=== PATIENT | male | born 1945 | race Caucasian/White ===

== ENCOUNTER 2016-12-26 04:24 | Observation (INO) | payer OTHER ==
[2016-12-26] MEDS ORDERED: ASPIRIN PO STA (04:42)
[2016-12-26] MEDS ORDERED: NITROGLYCERIN SL PRN (04:42)
[2016-12-26] MEDS ORDERED: ASPIRIN PO ONE (04:42)
[2016-12-26 04:49] LABS: MANUAL DIFF NEEDED? NO
[2016-12-26 04:58] LABS: BASO% 0.9 % (0.0-0.8); EOS# 0.42 X1000 (0.0-0.7); EOS% 7.8 % (0.0-10.0); HEMATOCRIT 39.4 % (42.0-52.0); HEMOGLOBIN 13.4 g/dL (14.0-18.0); LYMPH# 1.36 X1000 (1.2-3.4); LYMPH% 25.2 % (20.5-51.1); MCH 30.6 PG (27-31); MONO# 0.64 X1000 (0.11-0.59); MONO% 11.9 % (1.7-9.3); MPV 9.9 FL (7.4-10.4); NEUT% 54.2 % (42.2-75.2); PLT 265 X1000 (130-400); RBC 4.38 XMIL (4.7-6.1)
[2016-12-26 05:04] LABS: INR 1.07; PROTIME 11.3 Seconds (9.2-11.7); PTT 23.5 Seconds (22.0-36.0)
[2016-12-26 05:13] LABS: AGAP 13; ALBUMIN 4.2 g/dL (3.5-5.0); ALKALINE PHOSPHATASE 57 U/L (32-122); BUN 14 mg/dL (8-22); CALCIUM 9.2 mg/dL (8.8-10.2); CHLORIDE 103 mmol/L (98-107); CK PROFILE 117 U/L (24-204); COSMO 285; GOT 19 U/L (10-34); GPT 23 U/L (10-44); MAGNESIUM 1.8 mg/dL (1.5-2.7); POTASSIUM 4.2 mmol/L (3.5-5.1); SODIUM 141 mmol/L (136-145); TCO2 25 mmol/L (25-35); TOTAL BILIRUBIN 0.36 mg/dL (0.20-1.00); TOTAL PROTEIN 6.8 g/dL (6.3-8.3)
--- NOTE | 2016-12-26 05:25 | PROVIDER DOCUMENTATION ---
HPI-Chest Pain - General Source: patient - History of Present Illness-CP Location: reports: substernal Chest Pain Radiation: reports: no radiation Quality of Pain: reports: aching, fullness Severity in ED: mild Onset/Duration: 1-3 hours ago Timing: improving Context/Activities at Onset: reports: sleep Modifying Factors: improves with: nothing Associated Symptoms: reports: denies symptoms Nitro Today/Relief: no nitro taken today Aspirin Treatment Today: 81 mg x 1 Prior Chest Pain/Cardiac Workup: reports: cardiac cath (Pt had stent 15 years ago) Similar Symptoms Previously?: No Recently Seen Here or By Another Healthcare Provider: No <Devyn Nelson - Last Filed: 12/26/16 05:44> <Nba Rogers - Last Filed: 12/26/16 06:50> - General Chief Complaint: Chest Pain Stated Complaint: CP, HIGH BLOOD PRESSURE Time Seen by Provider: 12/26/16 04:34 Allergies/Adverse Reactions: Patient Allergies Allergy/AdvReac Type Severity Reaction Status Date / Time codeine AdvReac FLUSHING Verified 12/26/16 04:50 Home Medications: Home Medication List Medication Instructions Recorded Confirmed Last Taken Type Clopidogrel Bisulfate [Plavix] 75 mg PO DAILY 12/26/16 12/26/16 12/25/16 History - History of Present Illness-CP Nature of Presenting Problem: 71 yo WM with known IHD was awakened around 3 am with substernal CP but no N, V , sweating, etc. He is able to walk 5 miles per day without difficulty ( Devyn Nelson) Review of Systems - Adult - REVIEW OF SYSTEMS - ADULT Constitutional: reports: no symptoms reported Eyes: reports: no symptoms reported Ears, Nose, Mouth & Throat: reports: no symptoms reported Cardiovascular: reports: see HPI Respiratory: reports: no symptoms reported Gastrointestinal: reports: no symptoms reported Genitourinary: reports: no symptoms reported Musculoskeletal: reports: no symptoms reported Integumentary: reports: no symptoms reported Neurological: reports: no symptoms reported Psychiatric: reports: no symptoms reported Endocrine: reports: no symptoms reported Hematologic/Lymphatic: reports: no symptoms reported Allergic/Immunologic: reports: no symptoms reported All Other Systems: Reviewed and Negative <Devyn Nelson - Last Filed: 12/26/16 05:44> Past History - Adult - PAST MEDICAL HISTORY-ADULT Review of Records: reports: Medications Reviewed, Social history reviewed & non- contributory. <Devyn Nelson - Last Filed: 12/26/16 05:44> Physical Exam-General - PHYSICAL EXAM-ADULT Initial Vital Signs Reviewed: Yes - CONSTITUTIONAL General Appearance: appears well, alert, no apparent distress - EYES Eyes: PERRL/EOMI, pink conjunctivae - HEAD, EARS, NOSE, MOUTH & THROAT HENMT: normocephalic/atraumatic, moist mucous membranes, normal ENT inspection - NECK Neck: non-tender, full range of motion - RESPIRATORY Respiratory: chest non-tender, lungs clear, normal breath sounds - CARDIOVASCULAR Cardiovascular: regular rate, rhythm, no edema, no gallop, no JVD - GASTROINTESTINAL (ABDOMEN) Abdominal Exam: normal bowel sounds, non tender, soft, no organomegaly - GENITOURINARY Rectal Exam: deferred - LYMPHATIC Lymphatic: no adenopathy - MUSCULOSKELETAL Extremity: normal range of motion, non-tender Peripheral Pulses: radial (R): 3+, radial (L): 3+ - SKIN Integumentary: normal color, normal turgor, warm/dry - NEUROLOGIC Neurologic: grossly normal - PSYCHIATRIC Psych/Mental Status: normal mood/affect <Devyn Nelson - Last Filed: 12/26/16 05:44> Progress <Devyn Nelson - Last Filed: 12/26/16 05:44> <Nba Rogers - Last Filed: 12/26/16 06:50> - PLAN OF CARE/RESULTS Progress/Plan/Lab Results: Laboratory Tests 12/26/16 12/26/16 12/26/16 04:39 04:39 04:39 WBC 5.40 RBC 4.38 L Hgb 13.4 L Hct 39.4 L MCV 90.0 MCH 30.6 MCHC 34.0 RDW Std Deviation 13.0 Plt Count 265 MPV 9.9 Immature Gran % (Auto) 0.0 Neut % (Auto) 54.2 Lymph % (Auto) 25.2 [place] % (Auto) 11.9 H Eos % (Auto) 7.8 Baso % (Auto) 0.9 H Immature Gran # (Auto) 0.00 Neut # (Auto) 2.93 Lymph # (Auto) 1.36 [place] # (Auto) 0.64 H Eos # (Auto) 0.42 Baso # (Auto) 0.05 PT INR PTT (Actin FS) D-Dimer 0.18 Sodium 141 Potassium 4.2 Chloride 103 Carbon Dioxide 25 Anion Gap 13 BUN 14 Creatinine 1.0 Estimated GFR/1.73 m2 > 60 BUN/Creatinine Ratio 14 Glucose 152 H Calculated Osmolality 285 Calcium 9.2 Magnesium 1.8 Total Bilirubin 0.36 AST 19 ALT 23 Alkaline Phosphatase 57 Creatine Kinase 117 Yhn-J-Fjlkodiavtn Pept Total Protein 6.8 Albumin 4.2 Globulin 2.6 Albumin/Globulin Ratio 1.6 12/26/16 12/26/16 04:39 04:39 WBC RBC Hgb Hct MCV MCH MCHC RDW Std Deviation Plt Count MPV Immature Gran % (Auto) Neut % (Auto) Lymph % (Auto) [place] % (Auto) Eos % (Auto) Baso % (Auto) Immature Gran # (Auto) Neut # (Auto) Lymph # (Auto) [place] # (Auto) Eos # (Auto) Baso # (Auto) PT 11.3 INR 1.07 PTT (Actin FS) 23.5 D-Dimer Sodium Potassium Chloride Carbon Dioxide Anion Gap BUN Creatinine Estimated GFR/1.73 m2 BUN/Creatinine Ratio Glucose Calculated Osmolality Calcium Magnesium Total Bilirubin AST ALT Alkaline Phosphatase Creatine Kinase Jut-D-Fwbdzdnryge Pept 57 Total Protein Albumin Globulin Albumin/Globulin Ratio Orders Category Date Time Status Cardiac Monitoring DIRECTED Care 12/26/16 04:42 Active Saline Loc NOW Care 12/26/16 04:42 Active CHEST-PORTABLE [RAD] Stat Exams 12/26/16 04:42 Taken CBC WITH ELECTRONIC DIFF [HEME] Stat Lab 12/26/16 04:39 Completed CK PROFILE [SP CHEM] Stat Lab 12/26/16 04:39 Completed COMPREHENSIVE METABOLIC PANEL [CHEM] Stat Lab 12/26/16 04:39 Completed D-DIMER [CHEM] Stat Lab 12/26/16 04:39 Completed MAGNESIUM [CHEM] Stat Lab 12/26/16 04:39 Completed PRO B-NATRIURETIC PEPTIDE Stat Lab 12/26/16 04:39 Completed PROTIME WITH INR [COAG] Stat Lab 12/26/16 04:39 Completed PTT [COAG] Stat Lab 12/26/16 04:39 Completed TROPONIN T Stat Lab 12/26/16 04:39 Received Aspirin Med 12/26/16 04:42 Discontinued 324 mg PO NOW ONE Aspirin Med 12/26/16 04:42 Discontinued 325 mg PO STAT STA Nitroglycerin Sl [Nitroglycerin] Med 12/26/16 04:42 Active 0.4 mg SL Q5M PRN PRN EKG [EKG] Stat Ther 12/26/16 04:27 Ordered EKG [EKG] Stat Ther 12/26/16 04:42 Ordered Vital Signs Temp Pulse Resp BP Pulse Ox 12/26/16 05:38 71 18 140/70 99 12/26/16 04:28 98.4 F 84 16 137/77 100 codeine Adverse Reaction (Verified 12/26/16 04:50) FLUSHING Clopidogrel Bisulfate [Plavix] 75 mg PO DAILY 12/26/16 Laboratory 12/26/16 12/26/16 12/26/16 04:39 04:39 04:39 WBC RBC Hgb Hct MCV MCH MCHC RDW Std Deviation Plt Count MPV Immature Gran % (Auto) Neut % (Auto) Lymph % (Auto) [place] % (Auto) Eos % (Auto) Baso % (Auto) Immature Gran # (Auto) Neut # (Auto) Lymph # (Auto) [place] # (Auto) Eos # (Auto) Baso # (Auto) PT 11.3 INR 1.07 PTT (Actin FS) 23.5 D-Dimer 0.18 Sodium Potassium Chloride Carbon Dioxide Anion Gap BUN Creatinine Estimated GFR/1.73 m2 BUN/Creatinine Ratio Glucose Calculated Osmolality Calcium Magnesium Total Bilirubin AST ALT Alkaline Phosphatase Creatine Kinase Cuy-I-Scdibxnakhq Pept 57 Total Protein Albumin Globulin Albumin/Globulin Ratio 12/26/16 12/26/16 04:39 04:39 WBC 5.40 RBC 4.38 L Hgb 13.4 L Hct 39.4 L MCV 90.0 MCH 30.6 MCHC 34.0 RDW Std Deviation 13.0 Plt Count 265 MPV 9.9 Immature Gran % (Auto) 0.0 Neut % (Auto) 54.2 Lymph % (Auto) 25.2 [place] % (Auto) 11.9 H Eos % (Auto) 7.8 Baso % (Auto) 0.9 H Immature Gran # (Auto) 0.00 Neut # (Auto) 2.93 Lymph # (Auto) 1.36 [place] # (Auto) 0.64 H Eos # (Auto) 0.42 Baso # (Auto) 0.05 PT INR PTT (Actin FS) D-Dimer Sodium 141 Potassium 4.2 Chloride 103 Carbon Dioxide 25 Anion Gap 13 BUN 14 Creatinine 1.0 Estimated GFR/1.73 m2 > 60 BUN/Creatinine Ratio 14 Glucose 152 H Calculated Osmolality 285 Calcium 9.2 Magnesium 1.8 Total Bilirubin 0.36 AST 19 ALT 23 Alkaline Phosphatase 57 Creatine Kinase 117 Iky-L-Ikxkdmsdeso Pept Total Protein 6.8 Albumin 4.2 Globulin 2.6 Albumin/Globulin Ratio 1.6 (Devyn Nelson) 1024 Care of the patient assumed from DR Nelson awaiting troponin which has since returned and is negative. The EKG demonstrates a LBBB. No old EKGs have been located and the daughter states that she does not ever remember being told that there was a LBBB. The case was discussed with Dr Vaz of the hospitalist service who agreed with admission. (Nba Rogers) Departure <Devyn Nelson - Last Filed: 12/26/16 05:44> - Departure Time of Disposition Order: 06:30 Certified Medical Emergency: Emergent <Nba Rogers - Last Filed: 12/26/16 06:50> - Departure DIAGNOSIS: Chest pain, LBBB (left bundle branch block) Disposition: ADMITTED INPATIENT 09 Condition: Stable Physician Attestation
--- NOTE | 2016-12-26 06:02 | EKG Report ---
Test Performed on : 12/26/2016 04:30:30 AM Test Reason : CP Blood Pressure : / mmHG Vent. Rate : 080 BPM Atrial Rate : 080 BPM P-R Int : 222 ms QRS Dur : 160 ms QT Int : 414 ms P-R-T Axes : 042 -03 148 degrees QTc Int : 477 ms Sinus rhythm. with sinus arrhythmia. with 1st degree AV block. with occasional premature ventricular complexes. Left bundle branch block Abnormal ECG When compared with ECG of 20-APR-2011 15:33, [place] interval has increased Left bundle branch block is now present Unconfirmed Result
--- NOTE | 2016-12-26 07:47 | Diag Imaging Result Document ---
PROCEDURE NAME: CHEST-PORTABLE - 12/26/2016 AP PORTABLE CHEST AT 0500 HOURS: FINDINGS: Considering differences in inspiration and technique, the appearance of the chest has not changed significantly since 04/20/2011. IMPRESSION: Stable chest.
--- NOTE | 2016-12-26 08:24 | HISTORY AND PHYSICAL ---
HISTORY OF PRESENT ILLNESS: This is a 71-year-old who had a severe fall. They said he fell 56 feet several years ago and broke about all his cervical vertebrae. Had to have a fusion, cracked his skull. They said that he was pronounced and then seemed to come back. Long time recovery period, over a year. He has had, I think, a heart attack by what he describes. He said a clot in his heart and they put a stent in; this was about 16 years ago. 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 He has diabetes mellitus type 2. He has hypercholesterolemia and apparently hypertension. No other surgeries that he reports. ALLERGIES: He is allergic to codeine. Apparently he felt like his airway was closing. So has never taken any codeine since the year of his accident. FAMILY HISTORY: Noncontributory. SOCIAL HISTORY: He quit smoking years ago. Does not drink. He is . I think he has 2 daughters, is what he told me. REVIEW OF SYSTEMS: General: No weight gain or loss. No fever or chills. HEENT: Unremarkable. Respiratory: No increased work of breathing or dyspnea. Cardiovascular: He has not had any chest pain until this morning. He woke up I think it was around 6 o'clock this morning or maybe earlier, he is not sure, he did not look at the time, and felt this pressure down the lower part of his sternum. He pointed to the around the xiphoid process. GI/: No complaints. Endocrinologic/hematologic: No significant history. PHYSICAL EXAMINATION: VITAL SIGNS: In the emergency room, afebrile, temp 98.4 degrees, pulse 70, respirations 18, blood pressure 140/70. HEENT: Pupils are equal, round. LUNGS: Clear in all lung seth. NECK: CVP less than 6 cm. CARDIOVASCULAR: Regular rhythm and rate without murmur or S3. PMI nondisplaced. Carotid, radial, femoral, popliteal, and pedal pulses 2+ and symmetrical. ABDOMEN: Soft. SKIN: Warm and dry. LAB: White count 5,400, hematocrit 39, platelet count 265,000. Sodium 141, potassium 4.2, chloride 103, bicarb 25, BUN 14, creatinine 1.0, calcium 9.2. Liver functions unremarkable. Albumin 4.2. Protime 11.3, INR 1.07. Chest x-ray: Considering the difference in inspiration and technique, the chest has not changed significantly from 04/20/2011. He does not have an old EKG and this 1 apparently has left bundle-branch block. On looking at the EKG, he is in sinus rhythm. Left bundle-branch block. I do not know the age of that. ASSESSMENT AND PLAN: 1. Atypical chest pain. He has plenty of risk factors including diabetes mellitus type 2 and known coronary artery disease with a stent. Do not know his coronary anatomy. He has a left bundle-branch block, not sure of the age. We will check serial cardiac enzymes and I will set him up for a nuclear GXT. 2. Diabetes mellitus type 2. Will pattern sugars. 3. Hypertension. Will watch blood pressure. I have reviewed his list of medications from home. He is on Plavix already 75 mg a day and I think that is his only medication. 4. He has had a severe fall with cervical injury. Not on any pain medicine.
[2016-12-26] MEDS ORDERED: PLAVIX PO SCH (09:19)
[2016-12-26] MEDS ORDERED: ZOFRAN IV PRN (09:19)
[2016-12-26] MEDS ORDERED: TYLENOL PO PRN (09:19)
[2016-12-26] MEDS ORDERED: LEXISCAN ONE (11:34)
--- NOTE | 2016-12-26 11:58 | CONSULTATION ---
DATE OF CONSULTATION: 12/26/2016 REQUESTING PHYSICIAN: Hospitalist service. REASON FOR CONSULTATION: Chest discomfort. HISTORY: Mr. Riggs is pleasant 71-year-old male who presented to the emergency room this morning brought by his daughter because when he woke up he noted significant heaviness in the center of the chest which resembled a great deal the prior episode of acute coronary syndrome that he suffered about 16 years ago. This lasted for several moments, appeared to radiate to the left side of the chest under the left shoulder blade. He got in the car and went to his daughter's house who noted that his blood pressure was elevated, and the discomfort continued, and at that point she said, "We'd better go to the emergency room." In the ER, he has been checked. They have done an EKG that shows a left bundle-branch block, sinus rhythm. Two troponin levels have been checked. They are negative. The proBNP level was done, and it is normal. A chest x-ray has been requested, and it shows no major abnormalities. The patient is feeling better. It has been nearly 5 hours since the onset of symptoms. Right now, he has only minimal soreness in the chest. PAST HISTORY: Significant for an acute coronary syndrome that took place about 16 years ago. At that time, he was taken to [facility]. They told him that he had a significant amount of clot burden in the coronary arteries. They put him on clopidogrel and he has been taking clopidogrel ever since. He does have a history of hypertension. He has a history of diabetes mellitus type 2. He has had a very stable pattern of symptoms except for one isolated episode of chest discomfort that happened about 5 or 6 years ago, and at that time he went to see Dr. Km Hooks who performed testing on him and found no significant abnormalities. He has been seeing Dr. Perez, family practice, in [place], and he actually saw her just 5 days ago and he was found basically stable. He has no other significant past history. 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 This was about 40 years ago. He was so badly injured that he had to wear braces for nearly 3 years. Subsequently, he was able to function pretty well. He continued to work in construction. He has had left knee arthroscopic surgery, cataract extraction, cholecystectomy. FAMILY HISTORY: The family history of this patient is very positive. There were 10 siblings. Several of them had heart disease, heart attacks. Father also from myocardial infarction. SOCIAL HISTORY: He retired a few years ago. He lives by himself, is . He quit smoking 22 years ago. He has 2 grownup daughters. Both are nurses, and both keep an eye on him. His sister is also in the room today. She is a retired nurse from [employer], used to be an ER overnight associate. REVIEW OF SYSTEMS: In general, the patient feels well. He tries to be as active as he can. He has no major pains or chronic discomfort to speak of. PRESENT PHYSICAL EXAMINATION: Vital signs: Blood pressure is 140/70, temperature 98.4, pulse 71, respirations 18. General: He is awake, alert, oriented, in no distress. HEENT: No abnormalities. Chest: Fairly clear to auscultation and percussion. Cardiac: Heart sounds are regular and rhythmic. There is a systolic murmur over the aortic area. His heart sounds are really very distant. Abdomen: Nontender, soft, no masses, no hepatomegaly. Extremities: Good pulses. There is no peripheral edema. Neurological: He moves 4 extremities, follows commands. ADDITIONAL BLOOD WORK: D-dimer is negative. Pro time, PTT normal. Albumin and globulin normal. Magnesium is 1.8. Sodium 141, potassium 4.2, BUN and creatinine are 14 and 1.0. Hemoglobin is 13.4, white count 5400, hematocrit 39.4. IMPRESSION: 1. Patient who presented with chest discomfort suspicious for coronary ischemia. He has had a previous myocardial infarction, a stent several years ago. 2. Abnormal EKG with a left bundle-branch block. 3. History of hypertension. 4. History of diabetes mellitus type 2. RECOMMENDATION: At this point in time, we will suggest to treat this patient with beta-blockers, aspirin, give him a dose of enoxaparin, and we will arrange for a followup stress test. We will also review an echocardiogram. Further advice will be forthcoming. Thank you for the opportunity to participate in his evaluation. Best regards.
[2016-12-26 14:58] VITALS: BP 150/71
--- NOTE | 2016-12-26 15:52 | Diag Imaging Result Document ---
PROCEDURE NAME: MYOCARDIAL PERF SCAN, STR/REST - 12/26/2016 INDICATION: Chest pain. PROCEDURES PERFORMED: 1. One-day stress rest myocardial perfusion imaging. 2. Lexiscan stress. PROCEDURE IN DETAIL: Mr. Riggs was brought down and had a resting study with injection of 15.6 mCi of technetium-99m sestamibi with the usual imaging protocol utilized. He subsequently was brought back and had a Lexiscan stress. At peak stress, was injected with 44.4 mCi of technetium- 99m sestamibi with the usual imaging protocol utilized. FINDINGS: LEXISCAN STRESS RESULTS: 1. Baseline electrocardiogram shows sinus rhythm. Left bundle branch block is noted. 2. No evidence of ischemic related electrocardiogram changes or significant arrhythmias. Occasional premature ventricular contractions were identified. PERFUSION IMAGING RESULTS: 1. No evidence of abnormal extracardiac uptake. 2. TID ratio 0.89. 3. Perfusion imaging on post stress images shows a very small size, mild intensity defect in the inferior basilar segment. This is most likely suggestive of soft tissue attenuation artifact. No associated wall motion abnormality is identified in this area. 4. Normal ejection fraction of 51%. End-diastolic volume of 95 end-systolic volume of 46. There is a septal wall motion that appears possibly consistent with intraventricular conduction delay.
--- NOTE | 2016-12-26 17:39 | ECHO REPORT ---
ORDER DATE: 12/26/2016 INDICATION: Chest pain, coronary artery disease. FINDINGS: 1. Right atrium appears normal in size at 3.4 cm. 2. There is trace tricuspid regurgitation. 3. Normal RV size and systolic function. 4. No significant pulmonic insufficiency. 5. Mild left atrial enlargement at 4.3 cm. 6. No mitral prolapse. Mild mitral regurgitation. 7. Normal LV size, end-diastolic dimension of 4.3. Do not see any clear evidence of left ventricular hypertrophy on this study. Mildly reduced LV systolic function. The calculated EF is 43%. I do not see any clear segmental abnormalities. There does appear to be minimal global hypokinesis. 8. Aortic valve opens well. No evidence of stenosis or insufficiency. 9. Aorta appears normal in visualized segments. 10. No pericardial effusion seen.
--- NOTE | 2016-12-27 06:58 | DISCHARGE SUMMARY ---
ADMISSION DATE: 12/26/2016 DISCHARGE DATE: 12/26/2016 HISTORY AND HOSPITAL COURSE: This is a 71-year-old who came in. He had a severe fall several years ago. His past medical history, he had multiple cervical vertebrae fracture fusion. He cracked his skull at that time, and his only other significant history is that he has had a significant myocardial infarction described 16 years ago. He is not really having any trouble with chest pain. He presented this time, he woke up this morning with some chest pain that felt like pressure. Enzymes were negative. EKG showed left bundle-branch block. We went ahead and put him in observation, performed a nuclear Lexiscan GXT, which was negative for ischemia. His blood sugars look like they are fairly well controlled. Blood pressures look fairly well controlled. He does have known coronary artery disease. He is only on Plavix right now. We will put him on a little beta-xavier after discussing with Dr. Thorne and let him go home. DISCHARGE INSTRUCTIONS: Follow up with his primary care. He will let us know if he is having further trouble. No restriction on his activities.
[2016-12-27] MEDS ORDERED: PRILOSEC PO SCH (07:00)
[2016-12-27] MEDS ORDERED: ASPIRIN PO SCH (09:00)
== END 2016-12-26 18:45 | disposition home or self-care (01) ==
LOC: ED 04:24 → EDIPHOLD 08:41 → 3N 14:24
PROVIDERS: ATTEND Emergency Medicine
DX: R07.89 Other chest pain (principal); I44.7 Left bundle-branch block, unspecified; I10 Essential (primary) hypertension; I25.10 Atherosclerotic heart disease of native coronary artery without angina pectoris; E11.9 Type 2 diabetes mellitus without complications; E78.00 Pure hypercholesterolemia, unspecified; R01.1 Cardiac murmur, unspecified; I25.2 Old myocardial infarction; Z79.899 Other long term (current) drug therapy; Z79.02 Long term (current) use of antithrombotics/antiplatelets; Z79.84 Long term (current) use of oral hypoglycemic drugs; Z95.5 Presence of coronary angioplasty implant and graft; Z98.1 Arthrodesis status; Z87.81 Personal history of (healed) traumatic fracture; Z86.718 Personal history of other venous thrombosis and embolism; Z87.891 Personal history of nicotine dependence; Z82.49 Family history of ischemic heart disease and other diseases of the circulatory system
CPT/HCPCS: 71010; 78452; 80053; 82550; 82948; 83735; 83880; 84484; 85025; 85379; 85610; 85730; 93005; 93017; 93306; 94762; A9500